=== PATIENT | female | born 1970 | race Caucasian/White ===

== ENCOUNTER 2024-01-02 06:06 | Day surgery (SDC) | payer OTHER, SELFPAY ==
--- OUTSIDE RECORDS SUMMARY | 2024-01-02 06:09 | XMS RPT_ITS | CCD ---
Author Name Unknown Address [id number] [place] [address] Organization [facility] Care Team Providers Care Leadite Worker Name Role Phone MICKY MEYER, MARTINA Attending Geetha WILL MD, DR ADONIS Arguello Primary Care Edwina PAULA MD, DR CAMPBELL Attending Unavailable SUMAN RUDD, DR ADONIS Arguello Primary Care Edwina MEYER, MARTINA Attending Geetha WILL MD, DR ADONIS Arguello Primary Care Sami alexis MEYER, MARTINA Attending Geetha WILL MD, DR ADONIS Arguello Primary Care Sami alexis MEYER, MARTINA Attending Geetha qiana WILL MD, DR ADONIS Arguello Primary Care Sami alexis MEYER, MARTINA Attending Geetha WILL MD, DR ADONIS Arguello Primary Care Edwina WEEKS AUDIO VISUAL AIDS DIRECTOR-C, MARTINA Koenig Unavailable [phone] PHYSICAL THERAPY, CONSULT Unavailable Unavai lable SURGERY, GENERAL Unavailable Unavailable Noel MELENDEZ, Jennifer Unavailable Unavailable DENVER RUDD, GARRETT Stinson Unavailable [phone] JAMES ESPINAL MD Unavailable [phone] MARIJA CHERRY RN Unavailable Unavailable MAC AGUILERA RN Unavailable UnavailADE Felipe Unavailable Unavailable Miguel SUTTON MD Unavailable [place] [employer] LE[employer], Vanesa Unavailable Unavailable Traci Carlin Unavailable Unavailable Amber Ochoa Unavailable Unavailable DAMION SYLVESTER Unavailable Unavailable Jose M MELENDEZ, Aide Unavailable Unavailable BROWNANTONIETA MILLER Unavailable Unavailable Unavailable Unavailable MARTINA WEEKS REHABILITATION CONSTRUCTION SPECIALIST Attending Unavailab MARTINA Nichols REHABILITATION CONSTRUCTION SPECIALIST Primary Care Unavailab MARTINA Nichols NP Admitting Unavailab le Allergies Allergy Classification Reported Allergen(s) Allergy Type Date of Onset Reaction(s) Facility (4 sources) amLODIPine Drug Allergy Edema [facility]; [facility]. (4 sources) Omeprazole Drug Allergy Edema [facility]; [facility]. Medications Current Medications Medication Drug Class(es) Dates Sig (Normalized) Sig (Original) atenolol 25 mg oral tablet (12 sources) beta-Adrenergic Kyara Start: 03-28-2023 atenoloL 25 mg tablet ; 1 Tablet daily for 60 days Quantity: 60 {Tablet} Refills: 5 Ordered: 28-Mar-2023 APOLLO WEEKS Start: 28-Mar-2023 Completed/Discontinued Medications Medication Drug Class(es) Dates Sig (Normalized) Sig (Original) amLODIPine 10 mg oral tablet (4 sources) Dihydropyridine Calcium Channel Kyara Start: 08-10-2020 End: 10-01-2020 take 1 tablet by mouth once daily amLODIPine Besylate 10 MG Oral Tablet ; 1 (one) Tablet daily for 0 days Quantity: 90 {Tablet} Refills: 3 Ordered: 01-Oct-2020 AL Cohen Start: 10-Aug-2020 End: 01-Oct-2020 Status: Inactive Comments: medication to be dispensed in office Problems Active Problems Problem Classification Problem Date Documented Date Episodic/Chronic Administrative/socia l admission (10 sources) Patient encounter status; Translations: [Counseling, unspecified] 04-18-2023 Episodic Allergic reactions (4 sources) Contact dermatitis and other eczema due to plants [except food] 02-04-2015 Episodic Cardiac dysrhythmias (20 sources) Palpitations; Translations: [Palpitations] 04-18-2023 Episodic Diseases of white blood cells (20 sources) Disorder of white blood cells, unspecified; Translations: [White blood cell count abnormal] Onset: 06-21-2023 Chronic Disorders of lipid metabolism (20 sources) Hyperlipidemia, unspecified; Translations: [Hyperlipoproteinemia] Onset: 08-14-2023 Chronic Disorders of teeth and jaw (4 sources) Infection of tooth; Translations: [Periapical abscess without sinus] 06-08-2021 Episodic Esophageal disorders (20 sources) Gastroesophageal reflux disease without esophagitis; Translations: [Gastro-esophageal reflux disease without esophagitis] 04-18-2023 Chronic Essential hypertension (20 sources) Essential (primary) hypertension; Translations: [Benign essential hypertension] Onset: 08-14-2023 Chronic Fever of unknown origin (12 sources) Fever; Translations: [Fever, unspecified] 04-23-2023 Episodic Immunizations and screening for infectious disease (20 sources) Needs influenza immunization; Translations: [Encounter for immunization] 04-18-2023 Episodic Influenza (12 sources) Influenza; Translations: [Influenza due to unidentified influenza virus with other respiratory manifestations] 04-18-2023 Episodic Malaise and fatigue (4 sources) Fatigue; Translations: [Other fatigue] 06-29-2020 Episodic Other connective tissue disease (8 sources) Lateral epicondylitis of right humerus; Translations: [Lateral epicondylitis, right elbow] 04-18-2023 Episodic Other lower respiratory disease (4 sources) Dyspnea; Translations: [Shortness of breath] 03-19-2019 Episodic Other non-traumatic joint disorders (8 sources) Joint pain; Translations: [Pain in unspecified joint] 04-18-2023 Episodic Other non-traumatic joint disorders (12 sources) Swelling of knee joint; Translations: [Effusion, right knee] 08-20-2023 Episodic Other screening for suspected conditions (not mental disorders or infectious disease) (20 sources) Abnormal results of kidney function studies; Translations: [Nonspecific abnormal results of function study of kidney] Onset: 09-06-2023 Episodic Other skin disorders (2 sources) Nonscarring hair loss, unspecified; Translations: [Nonscarring hair loss, unspecified] Onset: 08-14-2023 Episodic Other skin disorders (8 sources) Loss of hair; Translations: [Nonscarring hair loss, unspecified] 08-13-2023 Episodic Other skin disorders (12 sources) Eruption; Translations: [Rash and other nonspecific skin eruption] 04-18-2023 Episodic Other skin disorders (4 sources) Skin lesion; Translations: [Disorder of the skin and subcutaneous tissue, unspecified] 06-29-2020 Episodic Other skin disorders (4 sources) Rash and other nonspecific skin eruption 02-04-2015 Episodic Other upper respiratory infections (8 sources) Bacterial sinusitis; Translations: [Chronic sinusitis, unspecified] 04-18-2023 Chronic Other upper respiratory infections (20 sources) Bacterial upper respiratory infection; Translations: [Acute upper respiratory infection, unspecified] 04-18-2023 Episodic Residual codes; unclassified (16 sources) Overweight; Translations: [Other specified conditions influencing health status] 04-18-2023 Episodic Residual codes; unclassified (8 sources) Peripheral edema; Translations: [Edema, unspecified] 04-18-2023 Episodic Residual codes; unclassified (4 sources) History of clinical finding in subject; Translations: [Personal history of other specified conditions] 03-20-2018 Episodic Superficial injury; contusion (4 sources) Tick bite; Translations: [Insect bite (nonvenomous) of lower back and pelvis, initial encounter] 10-01-2020 Episodic Unclassified (4 sources) LAB DRAW - The labs drawn today include: CMP. The lab was ordered by [facility]-. 09-06-2023 Unclassified (4 sources) LAB DRAW - The labs drawn today include: CBC, SED RATE and other: CRP. The lab was drawn from the left antecubital vein. The lab was ordered by [facility]-. 06-05-2023 Unclassified (4 sources) LAB DRAW - The labs drawn today include: CBC. The lab was ordered by [facility]-. 05-09-2023 Unclassified (4 sources) LAB DRAW - The labs drawn today include: Lipid Panel and TSH. The lab was ordered by [facility]-. 07-19-2022 Unclassified (4 sources) LAB DRAW - The labs drawn today include: CMP and Lipid Panel. The lab was ordered by [facility]-. 01-20-2022 Unclassified (4 sources) LAB DRAW - The lab was drawn from the left antecubital vein. The lab was ordered by Dr. Sutton. 12-05-2017 Viral infection (2 sources) Recurrent herpes simplex labialis; Translations: [Herpesviral vesicular dermatitis] 12-26-2023 Episodic Past or Other Problems Problem Classification Problem Date Documented Date Episodic/Chronic Coronary atherosclerosis and other heart disease (12 sources) Coronary atherosclerosis and other heart disease 08-01-2022 Esophageal disorders (12 sources) Esophageal disorders 03-19-2019 Headache; including migraine (20 sources) Headache; including migraine 01-12-2022 Mood disorders (4 sources) Mood disorders 08-13-2023 Other non-traumatic joint disorders (2 sources) Pain in unspecified joint; Translations: [Pain in unspecified joint] Onset: 04-18-2023 Episodic Unclassified (8 sources) Immunization - Immunizations discussed with patient/ parent: yes. Influenza immunization was given. An immunization information sheet was provided. 09-21-2023 Unclassified (4 sources) !Patient notification of lab results - APOLLO Meza. The test(s) that you had done were/was blood work. You should call our office if you have any questions. Note for !Patient notification of lab results : The only abnormal lab was kidney function and cholesterol. It's time to start something for cholesterol. I would also work on hydration and recheck in 2-3 weeks. Vitamin D was fine, iron was fine, and thyroid was fine. This may be stress related or even hormonal. We could also recheck vitamin D, iron, and thyroid in another month if this continues to see if they are changing. Let me know about the cholesterol medication. Thanks! 08-15-2023 Unclassified (4 sources) Knee pain - The knee pain has been occurring for 2 weeks. The knee pain involves the right knee (swelling). The knee pain is described as being located in the entire knee. The knee pain is aggravated by stairs (down). The knee pain is relieved by anti-inflammatory medication and ice. 08-13-2023 Unclassified (4 sources) Fever - The onset of the fever has been sudden and they have been occurring for 3 days. There has been associated body aches, chills, fatigue, headache, leg pain and pain in joints, while there has been no chest pain, cough, dark urine, diarrhea, discharge from ear, dyspnea, dysuria, foreign travel in last 6 months, neck stiffness, night sweats, runny nose or tick bite. 04-20-2023 Unclassified (4 sources) Fever - The onset of the fever has been acute and they have been occurring for 1 day. The fever is relieved by analgesics. There has been associated body aches, fatigue and skin rash (Pt has a red rash on her upper right thigh. It has been there about 3 days.), while there has been no cough, diarrhea, dysuria, nausea, runny nose or sore throat. Note for Fever : Pt was feeling tired for a few days before the fever started. 04-18-2023 Unclassified (8 sources) HYPERTENSION - There has been no associated chest pain, dyspnea, edema or palpitations. 03-28-2023 Unclassified (20 sources) Immunization - Influenza immunization was given. An immunization information sheet was provided. 10-04-2022 Unclassified (3 sources) HYPERTENSION - The symptoms have been associated with edema (Usually resolves overnight.), while the symptoms have not been associated with chest pain, dyspnea or palpitations. 08-01-2022 Unclassified (4 sources) !Patient notification of lab results - APOLLO Meza. The test(s) that you had done were/was blood work. Your tests were abnormal Please follow up as scheduled. Note for !Patient notification of lab results : Your cholesterol has increased. Restart red yeast rice and let's reevaluate in 3-4 months.Message explained directly to Marija. 01-21-2022 Unclassified (3 sources) Elbow Pain - The onset of the elbow pain has been gradual following no specific incident and has been occurring in an intermittent pattern for 6 months. The course has been gradually worsening. The elbow pain is described as being located over the lateral elbow. Aggravating factors include physical activity, pronating forearm, lifting, pushing and pulling. The pain was relieved by ice, medication and medications. The symptoms have been associated with stiffness, weakness and tingling (right arm intermittant), while the symptoms have not been associated with swelling in the elbow or swelling in the arm. 01-12-2022 Unclassified (4 sources) Rash - The onset of the rash has been acute and has been occurring for 3 days. The rash was first seen on the face (right jawline). It spread to the neck, the trunk, the upper extremity and the lower extremity. There has been associated itching. 09-15-2021 Unclassified (4 sources) Insect Bite/Sting - The insect causing the bite/sting is thought to be a tick. Symptoms include single bite or sting, pain at the site of the bite or sting, redness at the site of the bite or sting and swelling at the site of the bite or sting. Symptoms are located on the back (Left Shoulder blade area). Note for Insect bite/sting : Denies fatigue and weakness or fever 10-01-2020 Unclassified (4 sources) Fever - The onset of the fever has been acute and they have been occurring in an intermittent pattern for 3 days. The fever is relieved by analgesics. There has been associated cough and runny nose (sinus). 02-02-2020 Unclassified (4 sources) Cough - Note for Cough : 2+ weeks of intermittant cough, postnasal drip. Worst at night. Intermittant ST and occas tongue is sore as well. Nonproductive cough worsening in past few days, and now runny nose. Lengthy dental appt (biopsy and tooth reconstruction) on , concerned about coughing during procedure. 10-20-2019 Unclassified (3 sources) HYPERTENSION - The symptoms have been associated with dyspnea (Note some SOB w/ stairclimbing or carrying heavy objects.), while the symptoms have not been associated with chest pain. Note for HYPERTENSION : BP has been creeping higher since not taking diuretic. 03-19-2019 Unclassified (4 sources) Immunization 09-13-2018 Unclassified (4 sources) [ADDITIONAL REASON] Gastroesophageal Reflux Disease - Note for Gastroesophageal reflux disease : Continues to wake with sore throat. Tries to take Prilosec prior to supper but often forgets until after mealtime. Dentist continues to note teeth erosion/pitting states due to acid. 02-26-2018 Unclassified (3 sources) [ADDITIONAL REASON] palpitations - No Palpitations noted since taking 25 mg atenolol daily. 02-26-2018 Unclassified (4 sources) HYPERTENSION - Note for HYPERTENSION : Pt. states she feels well. No new complaints. Pt. states she has had elevated blood pressure readings occasionally at home. 2 weeks ago pt. had reading of 150/100. 09-27-2015 Unclassified (4 sources) Rash - The rash has been occurring in a persistent pattern for 2 days. The course has been increasing. The rash is characterized as red (itchy). The patient was possibly exposed while gardening. The rash was first seen on the face. It spread to the neck. 02-04-2015 Unclassified (2 sources) Eye Discharge - Symptoms include eye redness, eye itching and lid crusting, while symptoms do not include eye pain. Symptoms are located in the left eye. Onset was 1 day(s) ago. Note for Eye discharge : Pt started eye drops for pink eye a few hours after symptoms started. Pt also has had sinus congestion for about 2 weeks. Pt had a facial before it started. 12-26-2023 Unclassified (1 source) [ADDITIONAL REASON] HYPERTENSION - The symptoms have been associated with edema (Usually resolves overnight.), while the symptoms have not been associated with chest pain, dyspnea or palpitations. 08-01-2022 Unclassified (1 source) [ADDITIONAL REASON] Elbow Pain - The onset of the elbow pain has been gradual following no specific incident and has been occurring in an intermittent pattern for 6 months. The course has been gradually worsening. The elbow pain is described as being located over the lateral elbow. Aggravating factors include physical activity, pronating forearm, lifting, pushing and pulling. The pain was relieved by ice, medication and medications. The symptoms have been associated with stiffness, weakness and tingling (right arm intermittant), while the symptoms have not been associated with swelling in the elbow or swelling in the arm. 01-12-2022 Unclassified (1 source) [ADDITIONAL REASON] HYPERTENSION - The symptoms have been associated with dyspnea (Note some SOB w/ stairclimbing or carrying heavy objects.), while the symptoms have not been associated with chest pain. Note for HYPERTENSION : BP has been creeping higher since not taking diuretic. 03-19-2019 Unclassified (1 source) palpitations - No Palpitations noted since taking 25 mg atenolol daily. 02-26-2018 Results Test Name Value Interpretation Reference Range Facil ity Vital Signs Date Time Vital Sign Value Performing Clinician Londoni cristela 12-26-2023 08:51-0500 Body height 165.1 cm Aide [facility]. 12-26-2023 08:51-0500 Body mass index (BMI) [Ratio] 28.12 kg/m2 Aide Salguero RN [facility].; [facility] 12-26-2023 08:51-0500 Body surface area Derived from formula 1.84 m2 Aide Salguero RN [facility].; [facility] 12-26-2023 08:51-0500 Body temperature 98 [degF] Aide Salguero RN [facility].; [facility] Encounters Encounter Date Encounter Type Care Provider Facility Start: 12-26-2023 End: 12-26-2023 ambulatory MARTINA WEEKS [facility] Start: 12-26-2023 End: 12-26-2023 Medication Refill/Order MARTINA WEEKS AUDIO VISUAL AIDS DIRECTOR-C [facility] Start: 12-26-2023 End: 12-26-2023 Office outpatient visit 15 minutes MARTINA WEEKS AUDIO VISUAL AIDS DIRECTOR-C [facility] Start: 12-26-2023 Review MARTINA SALCEDO AUDIO VISUAL AIDS DIRECTOR-C [facility] Start: 11-26-2023 End: 11-26-2023 Medication Refill/Order MARTINA WEEKS AUDIO VISUAL AIDS DIRECTOR-C [facility] Start: 09-21-2023 End: 09-21-2023 Injection/immunization only MARTINA WEEKS AUDIO VISUAL AIDS DIRECTOR-C [facility] Start: 09-17-2023 End: 09-17-2023 Transition of Care MARTINA WEEKS AUDIO VISUAL AIDS DIRECTOR-C [facility] Start: 09-06-2023 End: 09-11-[address] ADRIAN PAULA MD Facility:A Start: 09-06-2023 End: 09-06-2023 Lab Only MARTINA PADNEYJOSEER AUDIO VISUAL AIDS DIRECTOR-C Work Phone: [facility] Start: 08-20-2023 End: 08-20-2023 Transition of Care MARTINA PANDEYTTER AUDIO VISUAL AIDS DIRECTOR-C Work Phone: [place] [employer] Start: 08-17-2023 End: 08-17-2023 Medication Refill/Order MARTINA PANDEYJOSEER AUDIO VISUAL AIDS DIRECTOR-C Work Phone: [employer] [facility] [employer] Start: 08-15-2023 End: 08-15-2023 Results Review MARTINA PANDEYTTER AUDIO VISUAL AIDS DIRECTOR-C Work Phone: [facility] [employer] Start: 08-14-2023 End: 08-19-2023 ambulatory MARTINA HOFSTETTER TRANSITION PROGRAM MANAGER-ELASTIC TAPE INSERTER Facility:A Start: 08-13-2023 End: 08-18-2023 ambulatory MARTINA HOFSTETTER TRANSITION PROGRAM MANAGER-ELASTIC TAPE INSERTER Facility:A Start: 08-13-2023 End: 08-13-2023 Office outpatient visit 15 minutes MARTINA CALVERTTETTER AUDIO VISUAL AIDS DIRECTOR-C Work Phone: [employer] [facility] [employer] Start: 06-05-2023 End: 06-10-2023 ambulatory MARTINA HOFIDETETTER TRANSITION PROGRAM MANAGER-ELASTIC TAPE INSERTER Facility:A Start: 06-05-2023 End: 06-05-2023 Lab Only MARTINA PANDEYTTER AUDIO VISUAL AIDS DIRECTOR-C Work Phone: [facility] [employer] Start: 05-10-2023 End: 05-10-2023 Lab Only MARTINA HOFIDETETTER AUDIO VISUAL AIDS DIRECTOR-C Work Phone: [employer] [facility] [employer] [facility] [employer] Start: 05-09-2023 End: 05-14-2023 ambulatory MARTINA HOFSTETTER TRANSITION PROGRAM MANAGER-ELASTIC TAPE INSERTER Facility:A Start: 05-09-2023 End: 05-09-2023 Lab Only MARTINA PANDEYTTER AUDIO VISUAL AIDS DIRECTOR-C [facility] Start: 05-07-2023 End: 05-07-2023 Lab Only MARTINA HOFIDETETTER AUDIO VISUAL AIDS DIRECTOR-C [facility] Start: 04-23-2023 End: 04-23-2023 Medication Refill/Order MARTINA HOFSTETTER AUDIO VISUAL AIDS DIRECTOR-C [facility] Start: 04-20-2023 End: 04-20-2023 Office outpatient visit 15 minutes MARTINA CALVERTTETTER AUDIO VISUAL AIDS DIRECTOR-C [facility] Start: 04-18-2023 End: 04-23-2023 ambulatory MARTINA DANNIEDENISSE TRANSITION PROGRAM MANAGER-ELASTIC TAPE INSERTER Facility:A Start: 04-18-2023 End: 04-18-2023 Office outpatient visit 15 minutes MARTINA PANDEYTTER AUDIO VISUAL AIDS DIRECTOR-C [facility] Start: 03-28-2023 End: 03-28-2023 Office outpatient visit 15 minutes MARTINA CALVERTTETTER AUDIO VISUAL AIDS DIRECTOR-C Work Phone: [facility] Start: 11-17-2022 End: 11-17-2022 Medication Refill/Order MARTINA HOFSTETTER AUDIO VISUAL AIDS DIRECTOR-C Work Phone: [facility] Start: 10-02-2022 End: 10-04-2022 Injection/immunization only MARTINA HOFSTETTER AUDIO VISUAL AIDS DIRECTOR-C Work Phone: [facility] Start: 07-21-2022 End: 07-21-2022 Office outpatient visit 15 minutes MARTINA HOFSTETTER AUDIO VISUAL AIDS DIRECTOR-C [facility] Start: 07-19-2022 End: 07-19-2022 Lab Only MARTINA WEEKS AUDIO VISUAL AIDS DIRECTOR-C [facility] Start: 07-19-2022 End: 07-19-2022 Lab Only MARTINA WEEKS AUDIO VISUAL AIDS DIRECTOR-C [facility] Start: 01-21-2022 End: 01-21-2022 Follow-up encounter MARTINA WEEKS AUDIO VISUAL AIDS DIRECTOR-C [facility] Start: 01-20-2022 End: 01-20-2022 Lab Only MARTINA WEEKS AUDIO VISUAL AIDS DIRECTOR-C Work Phone: [facility] Start: 01-12-2022 End: 01-12-2022 Office outpatient visit 15 minutes MARTINA WEEKS AUDIO VISUAL AIDS DIRECTOR-C Work Phone: [facility] Start: 10-05-2021 End: 10-05-2021 Injection/immunization only MARTINA WEEKS AUDIO VISUAL AIDS DIRECTOR-C Work Phone: [facility] Start: 09-15-2021 End: 09-15-2021 Office outpatient visit 15 minutes MARTINA WEEKS AUDIO VISUAL AIDS DIRECTOR-C Work Phone: [facility] Start: 06-08-2021 End: 06-08-2021 Medication Refill/Order MARTINA BESTDIANNE AUDIO VISUAL AIDS DIRECTOR-C Work Phone: [facility] Start: 02-11-2021 End: 02-11-2021 Addendum to visit MARTINA PANDEYDENISSE AUDIO VISUAL AIDS DIRECTOR-C Work Phone: [facility] Start: 11-24-2020 End: 11-24-2020 Office outpatient visit 15 minutes MARTINA PANDEYTTER AUDIO VISUAL AIDS DIRECTOR-C Work Phone: [facility] [employer] Start: 10-01-2020 End: 10-01-2020 Office outpatient visit 15 minutes MARTINA HOFSTETTER AUDIO VISUAL AIDS DIRECTOR-C Work Phone: [place] [employer] [facility] [employer] Start: 09-15-2020 End: 09-15-2020 Injection/immunization only MARTINA HOFSTETTER AUDIO VISUAL AIDS DIRECTOR-C [facility] Phone[facility] Start: 08-10-2020 End: 08-10-2020 Office outpatient visit 15 minutes MARTINA HOFSTETTER AUDIO VISUAL AIDS DIRECTOR-C Work Phone: [facility] [employer] Start: 07-20-2020 End: 07-20-2020 Historical Summary MARTINA HOFIDETETTER AUDIO VISUAL AIDS DIRECTOR-C [facility] Phone: [facility] Start: 06-29-2020 End: 06-29-2020 Office outpatient visit 25 minutes MARTINA CALVERTTETTER AUDIO VISUAL AIDS DIRECTOR-C Work Phone: [facility] [employer] Start: 02-02-2020 End: 02-02-2020 Office outpatient visit 15 minutes MARTINA CALVERTTETTER AUDIO VISUAL AIDS DIRECTOR-C Work Phone: [employer] [facility] Start: 11-06-2019 End: 11-06-2019 Medication Refill/Order MARTINA HOFSTETTER AUDIO VISUAL AIDS DIRECTOR-C Work Phone: [facility] [employer] Start: 10-20-2019 End: 10-20-2019 Office outpatient visit 10 minutes MARTINA HOFSTETTER AUDIO VISUAL AIDS DIRECTOR-C Work Phone: [facility] [employer] Start: 05-01-2019 End: 05-01-2019 Office outpatient visit 10 minutes MARTINA WEEKS AUDIO VISUAL AIDS DIRECTOR-C Work Phone: [facility] [employer] [facility] [employer]. Start: 03-21-2019 End: 03-21-2019 Historical Summary MARTINA WEEKS AUDIO VISUAL AIDS DIRECTOR-C [facility] Phone: [facility] [employer] Start: 03-19-2019 End: 03-19-2019 Office outpatient visit 15 minutes MARTINA BESTER AUDIO VISUAL AIDS DIRECTOR-C Work Phone: [facility] [employer]. Start: 01-28-2019 End: 01-28-2019 Medication Refill/Order MARTINA HOAGUILARER AUDIO VISUAL AIDS DIRECTOR-C Work Phone: [facility] [employer] Start: 09-13-2018 End: 09-13-2018 Injection/immunization only MARTINA HOREEDTTER AUDIO VISUAL AIDS DIRECTOR-C Work Phone: [facility] [employer]. Start: 03-20-2018 End: 03-20-2018 Medication Refill/Order MARTINA BESTER AUDIO VISUAL AIDS DIRECTOR-C Work Phone: [facility] [employer]. Start: 02-26-2018 End: 02-26-2018 Office outpatient visit 15 minutes MARTINA BESTER AUDIO VISUAL AIDS DIRECTOR-C Work Phone: [facility] [employer] Start: 12-13-2017 End: 12-13-2017 Historical Summary MARTINA WEEKS AUDIO VISUAL AIDS DIRECTOR-C Work Phone: [employer] [facility] [employer] Start: 12-05-2017 End: 12-05-2017 Lab Only MARTINA WEEKS AUDIO VISUAL AIDS DIRECTOR-C Work Phone: [employer] [facility] [employer] Start: 11-20-2017 End: 11-20-2017 Medication Refill/Order MARTINA PANDEYTTER AUDIO VISUAL AIDS DIRECTOR-C [facility] Phone: [facility] [employer] [facility] [place] Start: 09-05-2017 End: 09-05-2017 Injection/immunization only MARTINA WEEKS AUDIO VISUAL AIDS DIRECTOR-C Work Phone: [facility] Start: 07-11-2017 End: 07-11-2017 Historical Summary MARTINA WEEKS AUDIO VISUAL AIDS DIRECTOR-C Work Phone: [facility] Start: 11-07-2016 End: 11-07-2016 Results Review MARTINA BESTER AUDIO VISUAL AIDS DIRECTOR-C Work Phone: [facility] [place] Start: 11-06-2016 End: 11-06-2016 Medication Refill/Order MARTINA WEEKS AUDIO VISUAL AIDS DIRECTOR-C Work Phone: [facility] Start: 11-06-2016 End: 11-06-2016 Office outpatient visit 15 minutes MARTINA BESTER AUDIO VISUAL AIDS DIRECTOR-C Work Phone: [facility] Start: 09-22-2016 End: 09-22-2016 Injection/immunization only MARTINA WEEKS AUDIO VISUAL AIDS DIRECTOR-C Work Phone: [facility] [employer] Start: 04-24-2016 End: 04-24-2016 Office outpatient visit 15 minutes MARTINA WEEKS AUDIO VISUAL AIDS DIRECTOR-C Work Phone: [facility] Start: 03-06-2016 End: 03-06-2016 Historical Summary MARTINA BESTER AUDIO VISUAL AIDS DIRECTOR-C Work Phone: [facility] Start: 02-18-2016 End: 02-18-2016 Procedure Order MARTINA WEEKS AUDIO VISUAL AIDS DIRECTOR-C Work Phone: [facility] [place] Start: 10-25-2015 End: 10-25-2015 Office outpatient visit 15 minutes MARTINA WEEKS AUDIO VISUAL AIDS DIRECTOR-C [facility] Start: 09-28-2015 End: 09-28-2015 Historical Summary MARTINA WEEKS AUDIO VISUAL AIDS DIRECTOR-C [facility] Start: 09-27-2015 End: 09-27-2015 Office outpatient visit 15 minutes MARTINA WEEKS AUDIO VISUAL AIDS DIRECTOR-C [facility] Start: 09-08-2015 End: 09-08-2015 Historical Summary MARTINA WEEKS AUDIO VISUAL AIDS DIRECTOR-C [facility] Phone[facility] Start: 04-07-2015 End: 04-07-2015 Injection/immunization only MARTINA WEEKS AUDIO VISUAL AIDS DIRECTOR-C [facility]: [facility] Start: 02-04-2015 End: 02-04-2015 Patient encounter procedure MARTINA WEEKS AUDIO VISUAL AIDS DIRECTOR-C [facility] Start: 06-10-2012 End: 06-10-2012 Historical Summary MARTINA WEEKS AUDIO VISUAL AIDS DIRECTOR-C [facility] Procedures Date Procedure Procedure Detail Performing Clinician Start: 12-26-2023 End: 12-26-2023 Dischrg meds reconciled w/current med list MARTINA Koenig MICKY AUDIO VISUAL AIDS DIRECTOR-C Work Phone: Start: 08-13-2023 End: 08-13-2023 Dischrg meds reconciled w/current med list MARTINA Koenig NEHALCORRINEDENISSE AUDIO VISUAL AIDS DIRECTOR-C Work Phone: Start: 04-20-2023 End: 04-20-2023 Dischrg meds reconciled w/current med list MARTINA Koenig MICKY AUDIO VISUAL AIDS DIRECTOR-C Work Phone: Start: 04-18-2023 End: 04-18-2023 Dischrg meds reconciled w/current med list MARTINA WEEKS AUDIO VISUAL AIDS DIRECTOR-C Work Phone: Start: 03-28-2023 End: 03-28-2023 Dischrg meds reconciled w/current med list MARTINA WEEKS AUDIO VISUAL AIDS DIRECTOR-C Work Phone: Start: 02-15-2023 End: 02-15-2023 Screening mammography Vanesa Overholt SALES [employer]NABLEMENT LEAD Plan of Treatment Date Care Activity Detail Author Start: 12-26-2023 Lipid panel LIPID PANEL (76853) Start: 26-Dec-2023 11:17 [facility] [employer] [facility] Start: 07-21-2022 Complete tthrc echo congenital cardiac anomaly CARDIAC ECHO (04365) Start: 21-Jul-2022 [facility]; [facility] Start: 01-12-2022 Patient Education Healthy diet (Z71.3) Indication: Body mass index (BMI) exceeds 25 (Z71.82) (Z71.3 (Renamed from Body mass index (BMI) greater than 25) Start: 12-Jan-2022 Instruction Type: Patient Education [facility]; [facility] Start: 09-15-2021 Patient Education Exercise: for maintaining health (Z71.82) Indication: Body mass index (BMI) exceeds 25 (Z71.82) (Z71.3 (Renamed from Body mass index (BMI) greater than 25) Start: 15-Sep-2021 Instruction Type: Patient Education [facility]; [facility] [place] Start: 09-15-2020 Iiv4 vacc split virus 0.5 ml dos for im use QUADRIVALENT INFLUENZA VACCINE TO PATIENT OLDER THAN 3 YEARS (27505) Date: 15-Sep-2020 [facility]; [facility] Start: 06-29-2020 Oncology colorectal screening julissa 10 dna markrs COLOGUARD - STOOL DNA-BASED COLORECTAL CANCER SCREENING (27995) Start: 29-Jun-2020 [facility]; [facility] Start: 09-22-2016 Iiv4 vacc split virus 0.5 ml dos for im use QUADRIVALENT INFLUENZA VACCINE TO PATIENT OLDER THAN 3 YEARS (66081) Date: 22-Sep-2016 [facility]; [facility] Start: 02-04-2015 Patient Education POISON MARY KATE Indication: POISON MARY KATE Start: 04-Feb-2015 Instruction Type: Patient Education [facility]; [facility] Influenza, injec table, quadrivalent Scheduled for Administration Intent [facility]; [facility] Influenza, injec table, quadrivalent Scheduled for Administration Intent [facility]; [facility] Immunizations Immunization Date Immunization Notes Care Provider Weston lozano 09-21-2023 influenza, injectabl e, quadrivalent, preservative free MARTINA OJEDA-Dean Work Phone: [facility]; [facility] Payers Date Payer Category Payer Unknown [id number] 1970 Unknown [id number] [id number] [id number] 1970 Unknown [id number] 2.16.8 [id number] 1970 Unknown [id number] 2.16.8 [id number] 1970 Unknown [id number] 2.16.8 [id number] 1970 Unknown [id number] 2.16.8 [id number] 1970 Unknown [id number] 2.16.8 [id number] Unknown [employer] Social History Date Type Detail Facility Alcohol Use: Alcohol Use: ; 1 to 7 drinks per week. 1 drink per occasion. [facility]; [facility] Current Work/Study Status Current Work/St udy Status [facility]; [facility] Tobacco use: Tobacco use: ; N ever smoker. [facility]; [facility] Work Phone: Never smoked tobacco [facility]; [facility] Work Phone: Summary Purpose Family History No Family History Records Found Brother (s) Status:Active Comments:In good health. 1. Hypercholesterolemia. Ceasar - doesn't check his bp. Father Status:Active Comments:In good health. Hypertension. Hypercholesterolemia. non-hodgkins lymphoma, hypothyroid Maternal Grandmother Status:Active Comments:De ceased. Coronary artery disease. in her 70s. Mother Status:Active Comments:In good health. Hypertension. Hypercholesterolemia. Paternal Grandfather Status:Active Comments:De ceased. Cerebrovascular Accident. in his 50s. Paternal Grandmother Status:Active Comments:De ceased. Cerebrovascular Accident. in her 70s. Sister (s) Status:Active Comments:0. Brother (s) Status:Active Comments:In good health. 1. Hypercholesterolemia. Ceasar - doesn't check his bp. Father Status:Active Comments:In good health. Hypertension. Hypercholesterolemia. non-hodgkins lymphoma, hypothyroid Maternal Grandmother Status:Active Comments:De ceased. Coronary artery disease. in her 70s. Mother Status:Active Comments:In good health. Hypertension. Hypercholesterolemia. Paternal Grandfather Status:Active Comments:De ceased. Cerebrovascular Accident. in his 50s. Paternal Grandmother Status:Active Comments:De ceased. Cerebrovascular Accident. in her 70s. Sister (s) Status:Active Comments:0. Brother (s) Status:Active Comments:In good health. 1. Hypercholesterolemia. Ceasar - doesn't check his bp. Father Status:Active Comments:In good health. Hypertension. Hypercholesterolemia. non-hodgkins lymphoma, hypothyroid Maternal Grandmother Status:Active Comments:De ceased. Coronary artery disease. in her 70s. Mother Status:Active Comments:In good health. Hypertension. Hypercholesterolemia. Paternal Grandfather Status:Active Comments:De ceased. Cerebrovascular Accident. in his 50s. Paternal Grandmother Status:Active Comments:De ceased. Cerebrovascular Accident. in her 70s. Sister (s) Status:Active Comments:0. Brother (s) Status:Active Comments:In good health. 1. Hypercholesterolemia. Ceasar - doesn't check his bp. Father Status:Active Comments:In good health. Hypertension. Hypercholesterolemia. non-hodgkins lymphoma, hypothyroid Maternal Grandmother Status:Active Comments:De ceased. Coronary artery disease. in her 70s. Mother Status:Active Comments:In good health. Hypertension. Hypercholesterolemia. Paternal Grandfather Status:Active Comments:De ceased. Cerebrovascular Accident. in his 50s. Paternal Grandmother Status:Active Comments:De ceased. Cerebrovascular Accident. in her 70s. Sister (s) Status:Active Comments:0. Advance Directives No Advanced Directives Records FoundNo Advanced Directives Records FoundNo Advanced Directives Records Found Additional Source Comments INFORMATION SOURCE (unrecogn ized section and content) DATE CREATED AUTHOR AUTHOR'S ORGANIZ ATION 10/02/2023 [facility] ([place]) DATE CREATED AUTHOR AUTHOR'S ORGANIZ ATION 12/27/2023 [facility] FOR RECORDS PERTAINING TO PATIENTS WHO ARE OR HAVE BEEN ENROLLED IN A CHEMICAL DEPENDENCY/SUBSTANCEABUSE PROGRAM, SOME INFORMATION MAY BE OMITTED. This clinical summary was aggregated from multiple sources. Caution should be exercised in using it in the provision of clinical care. This summary normalizes information from multiple sources, and as a consequence, information in this document may materially change the coding, format and clinical context of patient data. In addition, data may be omitted in some cases. CLINICAL DECISIONS SHOULD BE BASED ON THE PRIMARY CLINICAL RECORDS. [employer] [facility]. provides no warranty or guarantee of the accuracy or completeness of information in this document.
[2024-01-02 06:38] VITALS: BP 166/84; PULSE 60; RESP 12; TEMP 36.6; O2SAT 100; BMI 26.6
[2024-01-02] MEDS: Lactated Ringers 1,000 ML 15 ML IV (06:49)
--- NOTE | 2024-01-02 07:13 | H&P.OPEN ---
HPI - General General Date of Service: 01/02/24 HPI Narrative MARIJA CHERRY, is a 53 F who presents for an EGD and screening colonoscopy. Patient states she has been taking her Protonix nightly unsure about improvement of any sore throat as it was only occasional and she is just getting over an upper respiratory infection. Patient denies any epigastric pain or reflux symptoms. office visit 11/20/23 HPI HPI: 53-year-old female presents for endoscopy. Patient had an EGD back in 2020 at that time she was placed on Protonix twice daily which she took for about 2 months in that fashion. Patient's report does not show any ulcers or gastritis from 2020. Patient currently takes Protonix occasionally as needed. Patient is still having issues with teeth decay and she occasionally has a sore throat but otherwise denies any burning up her esophagus or epigastric pain or bloating or belching. Patient has bowel movements daily denies any blood denies any family history of colon cancer. Patient is never had previous colonoscopy. Patient did do a Cologuard 06/2020 which was negative. [facility] Medical History (Updated 12/26/23 @ 12:00 by Valeria Tinsley) Gastric reflux High cholesterol History of echocardiogram History of hiatal hernia History of irregular heartbeat HTN (hypertension) Post-menopausal Wears glasses Home Medications atenolol 25 mg tablet 25 mg PO DAILY 11/20/23 [History Last Taken 01/02/24] atorvastatin 10 mg tablet 10 mg PO QHS 11/20/23 [History Last Taken 12/31/23] hydrochlorothiazide 25 mg tablet 25 mg PO QAM 11/20/23 [History Last Taken 01/01/24 12.5 mg] multivitamin 1 tab PO DAILY 11/20/23 [History Last Taken 12/31/23] naproxen sodium 220 mg capsule (Aleve) 220 mg PO BID PRN pain 11/20/23 [History Last Taken Unknown] pantoprazole 40 mg tablet,delayed release (Protonix) 40 mg PO DAILY 11/20/23 [History Last Taken 12/31/23] ubidecarenone-omega 3-vit E 25 mg-150 (90-60) mg-200 unit capsule (Co V-98-Ilxxpvz E-Fish Oil) 1 cap PO DAILY 11/20/23 [History Last Taken 12/31/23] cholecalciferol (vitamin D3) 25 mcg (1,000 unit) tablet (Vitamin D3) 25 mcg PO DAILY 12/26/23 [History Last Taken 12/28/23] doxycycline monohydrate 100 mg capsule 100 mg PO BID 12/26/23 [History Last Taken 12/31/23] vitamin A 2,500 unit-vit C 100 mg-biotin 2,500 gxl-naem-yswkgl capsule (Rexg-Mojx-Ebcb (vit A,T-vsxdzp-Cl-Cu)) 1 cap PO DAILY 12/26/23 [History Last Taken 12/31/23] Allergy/AdvReac Type Severity Reaction Status Date / Time No Known Allergies Allergy Verified 01/02/24 06:36 Family History (Updated 11/20/23 @ 14:21 by Sonya Velasquez LPN) Unknown Hypertension Arthritis High cholesterol Surgical History (Updated 11/20/23 @ 14:20 by Sonya Velasquez LPN) S/P dilatation and curettage S/P tonsillectomy and adenoidectomy Social History Smoking Status: Never smoker Past Medical/Surgical History Planned Operation Planned Operative Procedure/s: COLONOSCOPY/EGD Previous Hospitalizations/Surgeries HX Hospitalizations: No Any Problems With Anesthesia: No You/Your Family Experience Fever (Hyperthermia) With Anes: No Cholinesterase deficiency: No Cardiovascular Hx Hypertension: Yes (CONTROLLED ON MED) Respiratory Hx Sleep Apnea: No Hx Respiratory Tract Infection/Cold (presently): No Do You Snore Loudly (louder than talking or can be heard): No Do You Often Feel Tired/ Fatigued/ Sleepy Dring Daytime?: No Has Anyone Observed You Stop Breathing During Sleep?: No Result (for STOP score): Negative Smoking Status: Never smoker Neurological Does patient have nerve stimulator: No Miscellaneous Recent Exposure to Contagious Disease: No Allergies No Known Allergies Allergy (Verified 01/02/24 06:36) Discharge Is Pt Admitted From a Long-Term, or a Nursing Home: No After D/C, Where Do you Plan to Go: Return Home Vital Signs Vital Signs Vital Signs: 01/02/24 06:38 01/02/24 06:38 Temperature 97.9 F Temperature Source Temporal Pulse Rate 60 Respiratory Rate 12 Respiratory Pattern Normal Blood Pressure 166/84 H Blood Pressure Mean 111 Blood Pressure Source Monitor Blood Pressure Position Semi-Fowlers Blood Pressure Location Right Arm Pulse Ox 100 Oxygen Delivery Method Room Air Weight Weight: 165 lb 5.547 oz Body Mass Index (BMI) 26.6 Physical Exam Const alert, oriented x3 and no apparent distress HEENT normocephalic and head/scalp atraumatic Resp normal respiratory effort Cardio regular rate GI soft to palpation and non-tender; Negative for non-distended Palpation: Negative for guarding Extremity no clubbing, cyanosis or edema Skin no rashes or lesions noted Neuro CN's II-XII intact bilaterally Psych mental status grossly normal Assessment & Plan Assessment/Plan (1) GERD (gastroesophageal reflux disease): (2) Screening for colon cancer: Surgery Risks - Colonoscopy I discussed with the patient the risks of the procedure: Yes Risks Include but are not Limited To: Plan to do an EGD and colonoscopy risks include but are not limited to: Bleeding, perforation requiring further surgery, inability to complete colonoscopy requiring barium enema.
--- NOTE | 2024-01-02 07:30 | IMM_PTH ---
PATHOLOGY RESULTS PATIENT: MARIJA CHERRY LOC: EN U#:[id number] AGE/SX: 53/F ROOM: RE01/02/[address]: Dr. Matilda Marquez MD : 1970 BED: DIS: 01/02/2024 SPEC #: [id number] RECD: 01/02/24 12:07 STATUS: SHONDA REJoslyn #: [id number] DENISE: 01/02/24 07:[address]: Matilda Marquez DEPT: IMMUNOHISTOCHEMISTRY RECD BY: Maida Tinajero ENTERED: 01/02/24 12:08 SP TYPE: IMMUNO OTHR DR: Martina Mitchell, DIRECTOR OF RETAIL MERCHANDISING-C Tissues: Stomach, NOS Procedures: H Pylori (initial) PHYSICIAN & INSTITUTION [place] [id number] SPECIMEN INFORMATION: Tissue Source: A - Antrum Clinical Info: GERD, screening Specimen Number: [id number] CPT code: 35227 METHODOLOGY: Deparaffinized sections of prefer/formalin-fixed tissue or PAP/DQ stained slides are incubated with monoclonal/polyclonal antibodies/oligonucleotide probes. Localization is made via biotin free immunoperoxidase method. Appropriate controls are performed and reacted as expected. Results on target cell population are indicated in the following table: RESULTS: ANTIBODY / CLONE RESULT Block A H Pylori (polyclonal) negative These tests were developed and their performance characteristics determined by [facility]. They may not have been cleared or approved by the U.S. Food and Drug Administration. The FDA has determined that such clearance or approval is not necessary. The above immunohistochemical/dualISH markers are ordered and reviewed by the Pathologist. INTERPRETATION: A. Antrum, biopsy: Negative for Helicobacter pylori organisms. RAFFAELE:carolyn 01/03/2024
--- NOTE | 2024-01-02 07:30 | COLBX_PTH ---
PATHOLOGY RESULTS PATIENT: MARIJA CHERRY LOC: EN U#:[id number] AGE/SX: 53/F ROOM: RE01/02/[address]: Dr. Matilda Marquez MD : 1970 BED: DIS: 01/02/2024 SPEC #: [id number] RECD: 01/02/24 11:51 STATUS: SHONDA CHRISTIANO #: [id number] DENISE: 01/02/24 07:[address]: Matilda Marquez DEPT: SURGICAL PATHOLOGY RECD BY: Kirsten Mendez ENTERED: 01/02/24 11:52 SP TYPE: COLON BX OTHR DR: Martina Mitchell, MANAGER PRODUCTION-C Tissues: Gastric mucous membrane Gastric mucous membrane Esophageal mucous membrane Esophageal mucous membrane Procedures: Surgery Specimen Level IV Alcian Blue/PAS (control) HEADER OPERATION: Colonoscopy, EGD with biopsy PRE-OP DIAGNOSIS: GERD, screening TISSUE SUBMITTED: A - Antrum biopsy for H. pylori and histology, B - Gastric polyp biopsy, C - Gastroesophageal junction biopsy, D - Upper esophagus biopsy MICROSCOPIC DIAGNOSIS A. Antrum, biopsy: Mild gastritis. See microscopic description and comment. B. Gastric polyp, biopsy: Fragments of gastric mucosa with focal changes suggestive of hyperplastic cells inflammatory polyp. C. Gastroesophageal junction, biopsy: Fragments of benign squamous epithelium. D. Upper esophagus, biopsy: Fragments of gastroesophageal mucosa with chronic inflammation. Intestinal metaplasia (goblet cell metaplasia) not identified. See comment. SJ:carolyn 01/03/2024 COMMENT A. The results of immunohistochemistry for Helicobacter pylori will be reported separately ([id number]). D. Alcian blue/PAS stain with matched control is used in the evaluation of the specimen. MICROSCOPIC DESCRIPTION Slides are reviewed. A. The specimen shows fragments of gastric mucosa with chronic inflammatory cell infiltrates in the lamina propria consisting of lymphocytes and plasma cells, consistent with mild chronic gastritis. GROSS DESCRIPTION A - Received in fixative is one container labeled with the patient's name and designated antrum biopsy. The specimen consists of one irregular fragment of light leiva soft tissue that measures 0.3 x 0.3 x 0.1 cm. The specimen is totally submitted in one cassette. B - Received in fixative is one container labeled with the patient's name and designated gastric polyp biopsy. The specimen consists of two irregular fragments of light leiva soft tissue that in aggregate measure 1.0 x 0.2 x 0.1 cm. The specimen is totally submitted in one cassette. C - Received in fixative is one container labeled with the patient's name and designated GE junction. The specimen consists of two irregular fragments of light leiva soft tissue that in aggregate measure 0.5 x 0.3 x 0.1 cm. The specimen is totally submitted in one cassette. D - Received in fixative is one container labeled with the patient's name and designated upper esophagus biopsy. The specimen consists of two irregular fragments of light leiva soft tissue that in aggregate measure 0.4 x 0.2 x 0.1 cm. The specimen is totally submitted in one cassette. / SJ:rg 01/02/2024 TC:3 CPT: 49085 x4, 21157
[2024-01-02 08:13] VITALS: BP 111/74; BP 166/84; PULSE 69; RESP 20; TEMP 36.2; O2SAT 99
[2024-01-02 08:15] VITALS: BP 130/85; BP 166/84; PULSE 69; RESP 12; O2SAT 97
--- NOTE | 2024-01-02 08:17 | OP.CCLET_ITS ---
01/02/2024 Rosi Meza Re : Upper GI endoscopy procedure for Ani Aguila Stephen This procedure was performed on Tuesday, January 02, 2024. My impressions and recommendations are as follows: Impressions : - Z-line variable, 40 cm from the incisors. Biopsied. - A few gastric polyps. Resected and retrieved. - Erythematous mucosa in the antrum. Biopsied. - Discolored mucosa in the esophagus. Biopsied. - Normal examined duodenum. Recommendations : - Discharge patient to home. - Resume previous diet. - Continue present medications. - Await pathology results. My findings are described in the full procedure note, which is enclosed. If I can be of further assistance, please feel free to contact me at Doctor phone number(s): , Work: . Sincerely, MD Matilda Kohli MD 01/02/2024 8:16:33 AM This report has been signed electronically.
--- NOTE | 2024-01-02 08:17 | OP.EGD_ITS ---
Patient Name: Ani Lovett Procedure Date: 01/02/2024 7:31 AM Date of : 1970 Age: 53 Procedure: Upper GI endoscopy Indications: Gastro-esophageal reflux disease Providers: Matilda Marquez MD Referring MD: Matilda Marquez MD Medicines: Monitored Anesthesia Care Patient Profile: This is a 53 year old female. Complications: No immediate complications. Procedure: Pre-Anesthesia Assessment: - Prior to the procedure, a History and Physical was performed, and patient medications and allergies were reviewed. The patient's tolerance of previous anesthesia was also reviewed. The risks and benefits of the procedure and the sedation options and risks were discussed with the patient. All questions were answered, and informed consent was obtained. Prior Anticoagulants: The patient has taken no anticoagulant or antiplatelet agents. ASA Grade Assessment: Per anesthesia. After reviewing the risks and benefits, the patient was deemed in satisfactory condition to undergo the procedure. After obtaining informed consent, the endoscope was passed under direct vision. Throughout the procedure, the patient's blood pressure, pulse, and oxygen saturations were monitored continuously. The pediatric colonoscope was introduced through the mouth, and advanced to the second part of duodenum. The upper GI endoscopy was accomplished without difficulty. The patient tolerated the procedure well. Scope In: 7:36:56 AM Scope Out: 7:45:52 AM Total Procedure Duration Time 0 hours 8 minutes 56 seconds Findings: The Z-line was variable and was found 40 cm from the incisors. Biopsies were taken with a cold forceps for histology. A few less than 5 mm sessile polyps with no bleeding and no stigmata of recent bleeding were found in the gastric fundus. The polyp was removed with a cold biopsy forceps. Resection and retrieval were complete. Mildly erythematous mucosa without bleeding was found in the gastric antrum. Biopsies were taken with a cold forceps for histology. Biopsies were taken with a cold forceps for Helicobacter pylori cultures. Localized mild mucosal changes characterized by discoloration were found in the upper third of the esophagus. Biopsies were taken with a cold forceps for histology. The examined duodenum was normal. The cardia and gastric fundus were normal on retroflexion. Impression: - Z-line variable, 40 cm from the incisors. Biopsied. - A few gastric polyps. Resected and retrieved. - Erythematous mucosa in the antrum. Biopsied. - Discolored mucosa in the esophagus. Biopsied. - Normal examined duodenum. Recommendation: - Discharge patient to home. - Resume previous diet. - Continue present medications. - Await pathology results. Procedure Code(s): --- Professional --- 13102, Esophagogastroduodenoscopy, flexible, transoral; with biopsy, single or multiple Diagnosis Code(s): --- Professional --- K22.89, Other specified disease of esophagus K31.7, Polyp of stomach and duodenum K31.89, Other diseases of stomach and duodenum K21.9, Gastro-esophageal reflux disease without esophagitis CPT copyright 2021 [employer]. All rights reserved. The codes documented in this report are preliminary and upon senior naval parachutist review may be revised to meet current compliance requirements. MD Matilda Kohli MD 01/02/2024 8:16:33 AM This report has been signed electronically. Number of Addenda: 0 Note Initiated On: 01/02/2024 7:31 AM
[2024-01-02 08:20] VITALS: BP 118/83; BP 166/84; PULSE 69; RESP 18; O2SAT 98
--- NOTE | 2024-01-02 08:20 | OP.COLON_ITS ---
Patient Name: Ani Lovett Procedure Date: 01/02/2024 7:45 AM Date of : 1970 Age: 53 Procedure: Colonoscopy Indications: Screening for colorectal malignant neoplasm Providers: Matilda Marquez MD Referring MD: Matilda Marquez MD Medicines: Monitored Anesthesia Care Patient Profile: This is a 53 year old female. Last Colonoscopy: none. The patient's first colonoscopy is today. Complications: No immediate complications. Procedure: Pre-Anesthesia Assessment: - Prior to the procedure, a History and Physical was performed, and patient medications and allergies were reviewed. The patient's tolerance of previous anesthesia was also reviewed. The risks and benefits of the procedure and the sedation options and risks were discussed with the patient. All questions were answered, and informed consent was obtained. Prior Anticoagulants: The patient has taken no anticoagulant or antiplatelet agents. ASA Grade Assessment: Per anesthesia. After reviewing the risks and benefits, the patient was deemed in satisfactory condition to undergo the procedure. After I obtained informed consent, the scope was passed under direct vision. Throughout the procedure, the patient's blood pressure, pulse, and oxygen saturations were monitored continuously. The pediatric colonoscope was introduced through the anus and advanced to the cecum, identified by the appendiceal orifice, ileocecal valve and palpation. The colonoscopy was somewhat difficult due to a tortuous colon. The patient tolerated the procedure well. The quality of the bowel preparation was good. Scope In: 7:47:03 AM Scope Withdrawal Time 0 hours 9 minutes 29 seconds Scope Out: 8:07:21 AM Total Procedure Duration Time 0 hours 20 minutes 18 seconds Findings: Non-bleeding internal hemorrhoids were found. The hemorrhoids were Grade I (internal hemorrhoids that do not prolapse). Scattered small-mouthed diverticula were found in the sigmoid colon and descending colon. The exam was otherwise without abnormality. Impression: - Non-bleeding internal hemorrhoids. - Diverticulosis in the sigmoid colon and in the descending colon. - The examination was otherwise normal. - No specimens collected. Recommendation: - Discharge patient to home. - Resume previous diet. - Continue present medications. - Repeat colonoscopy in 10 years for screening purposes. Procedure Code(s): --- Professional --- G0121, PT, Colorectal cancer screening; colonoscopy on individual not meeting criteria for high risk Diagnosis Code(s): --- Professional --- Z12.11, Encounter for screening for malignant neoplasm of colon K64.0, First degree hemorrhoids K57.30, Diverticulosis of large intestine without perforation or abscess without bleeding CPT copyright 2021 [employer]. All rights reserved. The codes documented in this report are preliminary and upon offensive coordinator review may be revised to meet current compliance requirements. MD Matilda Kohli MD 01/02/2024 8:19:46 AM This report has been signed electronically. Number of Addenda: 0 Note Initiated On: 01/02/2024 7:45 AM
--- NOTE | 2024-01-02 08:20 | OP.CCLET_ITS ---
01/02/2024 Rosi Meza Re : Colonoscopy procedure for Ani Aguila Stephen This procedure was performed on Tuesday, January 02, 2024. My impressions and recommendations are as follows: Impressions : - Non-bleeding internal hemorrhoids. - Diverticulosis in the sigmoid colon and in the descending colon. - The examination was otherwise normal. - No specimens collected. Recommendations : - Discharge patient to home. - Resume previous diet. - Continue present medications. - Repeat colonoscopy in 10 years for screening purposes. My findings are described in the full procedure note, which is enclosed. If I can be of further assistance, please feel free to contact me at Doctor phone number(s): , Work: . Sincerely, MD Matilda Kohli MD 01/02/2024 8:19:46 AM This report has been signed electronically.
[2024-01-02 08:24] VITALS: BP 115/84; BP 166/84; PULSE 66; RESP 18; TEMP 36.2; O2SAT 99
[2024-01-02 08:37] VITALS: BP 166/84
== END 2024-01-02 08:59 | disposition home or self-care (01) ==
LOC: EN 06:06 → AC 06:07
PROVIDERS: PCP Nurse Practitioner Family; Referring Provider Surgery; Visit Provider Surgery
PROC: 0DJD8ZZ Inspection of Lower Intestinal Tract, Via Natural or Artificial Opening Endoscopic (ICD-10-PCS; CPT 45378; principal; 2024-01-02 07:25)
DX: Z12.11 Encounter for screening for malignant neoplasm of colon (principal); K31.7 Polyp of stomach and duodenum; I10 Essential (primary) hypertension; K21.00 Gastro-esophageal reflux disease with esophagitis, without bleeding; K57.30 Diverticulosis of large intestine without perforation or abscess without bleeding; E78.00 Pure hypercholesterolemia, unspecified; Z79.899 Other long term (current) drug therapy; K64.0 First degree hemorrhoids; K29.70 Gastritis, unspecified, without bleeding; Z87.19 Personal history of other diseases of the digestive system
CPT/HCPCS: 45378; 43239; 88305; 88342; J7120; J2405